=== PATIENT | female | born 1990 | race Two or more races ===

== ENCOUNTER 2022-09-30 16:32 | Inpatient (IN) | payer MEDICAID ==
[~2022-09-30] VITALS: Ht 163 cm; Wt 78.5 kg
[2022-09-30] MEDS ORDERED: MISOPROSTOL 100MCG TABLET VG SCH (18:30)
[2022-09-30] MEDS ORDERED: NALOXONE HCL 0.4 MG/ML 1ML VIAL IM PRN (18:30)
[2022-09-30] MEDS ORDERED: METHYLERGONOVINE MALEATE 0.2 MG/ML IM PRN (18:30)
[2022-09-30] MEDS ORDERED: BUTORPHANOL TARTRATE 2 MG/ML VIAL IV PRN (18:30)
[2022-09-30] MEDS ORDERED: OXYTOCIN 30 UNITS/500ML NS PMX 500 ML IV SCH (18:30)
[2022-09-30] MEDS ORDERED: LIDOCAINE HCL 1% 20ML VIAL (Pyxis) INJ INFIL PRN (18:30)
[2022-09-30] MEDS ORDERED: CARBOPROST TROMETHAMINE 250 MCG/ML AMPUL IM PRN (18:30)
[2022-09-30] MEDS: LACTATED RINGERS 1,000 ML IV SCH ×2 (18:41→20:00)
[2022-09-30] MEDS ORDERED: PENICILLIN G POTASSIUM 5 MMU in DEXT 5% WATER 100 ML IV SCH (19:00)
[2022-09-30 20:33] LABS: CLARITY URINE CLEAR (CLEAR); COLOR URINE YELLOW (YELLOW); KETONES URINE NEGATIVE (NEGATIVE); LEUKOCYTE ESTERASE URINE 3+ (NEGATIVE); NITRITE URINE NEGATIVE (NEGATIVE); OCCULT BLOOD URINE NEGATIVE (NEGATIVE); PH URINE 6.5 (4.5-8.0); PROTEIN URINE NEGATIVE (NEGATIVE); UROBILINOGEN URINE 0.2 E.U./dL (0.2-1.0)
[2022-09-30 20:39] LABS: BASOPHILS % 0.3 % (0.0-2.0); EOSINOPHILS % 2.2 % (0.0-5.0); HEMATOCRIT. 37.9 % (36.0-48.0); HEMOGLOBIN. 12.5 g/dL (12.0-16.0); MEAN CORPUSCULAR HEMOGLOBIN 28.3 pg (28.0-32.0); MEAN CORPUSCULAR VOLUME 85.8 fL (81.0-99.0); MEAN PLATELET VOLUME 10.4 fl (7.4-10.4); MONOCYTES % 6.3 % (2.0-8.0); NEUTROPHILS % 63.2 % (40.0-76.0); PLATELET 230 x1000/uL (130-400); RED BLOOD CELL COUNT 4.42 mill/uL (4.2-5.4); RED CELL DISTRIBUTION WIDTH 16.8 % (11.6-14.6)
[2022-09-30 20:45] LABS: *AMPHETAMINES SCREEN URINE NEGATIVE (NEGATIVE); *BARBITURATES SCREEN URINE NEGATIVE (NEGATIVE); *BENZODIAZEPINES SCREEN URINE NEGATIVE (NEGATIVE); *COCAINE SCREEN URINE NEGATIVE (NEGATIVE); CANNABINOID URINE SCREEN NEGATIVE (NEGATIVE); METHADONE URINE SCREEN NEGATIVE (NEGATIVE); OPIATES URINE SCREEN NEGATIVE (NEGATIVE); PHENCYCLIDINE URINE SCREEN NEGATIVE (NEGATIVE)
[2022-09-30 20:47] LABS: CHLORIDE 107 mEq/L (98-107); INR 0.9; PARTIAL THROMBOPLASTIN TIME 28.2 sec (23.4-31.0); PROTHROMBIN TIME 10.1 sec (9.6-11.0)
[2022-09-30 21:07] LABS: HEPATITIS B SURFACE ANTIGEN NEGATIVE
[2022-09-30] MEDS: MISOPROSTOL 100MCG TABLET VG SCH (22:12)
[2022-10-01] MEDS: MISOPROSTOL 100MCG TABLET VG SCH (00:15)
[2022-10-01] MEDS: PENICILLIN G POTASSIUM 2.5 MMU in DEXTROSE 5% WATER 50 ML IV SCH ×3 (00:16→08:59)
[2022-10-01] MEDS: LACTATED RINGERS 1,000 ML IV SCH ×8 (00:16→10:22)
[2022-10-01] MEDS: DEXT 5%/LACTATED RINGERS 1,000 ML IV SCH ×2 (01:42→02:28)
[2022-10-01] MEDS ORDERED: ROPIVACAINE HCL/PF EPIDURAL 200 ML EPI SCH (07:00)
[2022-10-01] MEDS ORDERED: FENTANYL CITRATE/PF 50MCG/ML 2ML VIAL ONE (11:36)
[2022-10-01] MEDS ORDERED: LIDOCAINE HCL/PF 1% 10 MG/ML 5ML VIAL ONE (11:36)
[2022-10-01] MEDS ORDERED: RHO(D) IMMUNE GLOBULIN 300 MCG/SYR IM PRN (13:45)
[2022-10-01] MEDS ORDERED: LANOLIN OINT 7GM TUBE TOP PRN (13:45)
[2022-10-01] MEDS ORDERED: DIPHENHYDRAMINE 25MG CAPSULE PO PRN (13:45)
[2022-10-01] MEDS ORDERED: OXYTOCIN 30 UNITS/500ML NS PMX 500 ML IV SCH (13:45)
[2022-10-01] MEDS ORDERED: HEMORRHOIDAL SUPP PR PRN (13:45)
[2022-10-01] MEDS ORDERED: GLYCERIN/WITCH HAZEL LEAF MEDICATED PAD TOP PRN (13:45)
[2022-10-01] MEDS ORDERED: IBUPROFEN 400MG TABLET PO PRN (13:45)
[2022-10-01] MEDS: IBUPROFEN 800MG TABLET PO PRN ×2 (15:17→21:38)
[2022-10-01 15:30] VITALS: BP 122/78
[2022-10-01 17:00] VITALS: BP 128/80
[2022-10-01 19:30] VITALS: BP 107/53
[2022-10-01] MEDS ORDERED: DOCUSATE SODIUM 100MG CAPSULE PO SCH (21:00)
[2022-10-01] MEDS ORDERED: INFLUENZA VACCINE 05/PF 0.5 ML SYRINGE IM ONE (21:15)
[2022-10-01] MEDS ORDERED: TETANUS, DIPHTHERIA, PERTUSSIS VAC/PF 0.5ML (>10YR OLD) IM ONE (21:15)
[2022-10-02 04:00] VITALS: BP 95/50
[2022-10-02 07:16] LABS: BASOPHILS % 0.3 % (0.0-2.0); EOSINOPHILS % 1.2 % (0.0-5.0); HEMATOCRIT. 31.9 % (36.0-48.0); HEMOGLOBIN. 10.5 g/dL (12.0-16.0); LYMPHOCYTES % 21.3 % (20.0-50.0); MEAN CORPUSCULAR VOLUME 85.4 fL (81.0-99.0); MEAN PLATELET VOLUME 9.9 fl (7.4-10.4); MONOCYTES % 4.9 % (2.0-8.0); NEUTROPHILS % 72.3 % (40.0-76.0); PLATELET 174 x1000/uL (130-400); RED BLOOD CELL COUNT 3.74 mill/uL (4.2-5.4); RED CELL DISTRIBUTION WIDTH 16.7 % (11.6-14.6)
[2022-10-02 08:00] VITALS: BP 119/82
[2022-10-02] MEDS ORDERED: PRENATAL VIT/FE FUMARATE/FA TABLET PO SCH (09:00)
[2022-10-02] MEDS ORDERED: FERR325T6 MT (09:18)
[2022-10-02] MEDS ORDERED: IBUP-2030 PO (09:18)
[2022-10-02] MEDS ORDERED: MULT-1116 MT (09:18)
[2022-10-02 16:00] VITALS: BP 115/80
[2022-10-02] MEDS: IBUPROFEN 800MG TABLET PO PRN (16:52)
== END 2022-10-02 19:10 | disposition home or self-care (01) | DRG 560 ==
LOC: 8 EST LDRP 16:32 → OBSVTOIN 16:50 → 8 EST A/PP 10-01 15:15
PROVIDERS: ADMIT Obstetrics & Gynecology; ATTEND Obstetrics & Gynecology
PROC: 10E0XZZ Delivery of Products of Conception, External Approach (ICD-10-PCS; principal; 2022-10-01)
PROC: 3E0R3BZ Introduction of Anesthetic Agent into Spinal Canal, Percutaneous Approach (ICD-10-PCS; 2022-10-01)
PROC: 00HU33Z Insertion of Infusion Device into Spinal Canal, Percutaneous Approach (ICD-10-PCS; 2022-10-01)
PROC: 0HQ9XZZ Repair Perineum Skin, External Approach (ICD-10-PCS; 2022-10-01)
PROC: 3E033VJ Introduction of Other Hormone into Peripheral Vein, Percutaneous Approach (ICD-10-PCS; 2022-10-01)
DX: O76 Abnormality in fetal heart rate and rhythm complicating labor and delivery (principal); Z37.0 Single live birth; O41.03X0 Oligohydramnios, third trimester, not applicable or unspecified; O36.8130 Decreased fetal movements, third trimester, not applicable or unspecified; O77.0 Labor and delivery complicated by meconium in amniotic fluid; O99.02 Anemia complicating childbirth; O70.0 First degree perineal laceration during delivery; Z20.822 Contact with and (suspected) exposure to COVID-19; Z3A.39 39 weeks gestation of pregnancy
CPT/HCPCS: 36415; 76805; 76818; 80053; 80305; 81003; 85025; 86592; 86703; 86762; 86850; 86900; 87340; 87426; 90686; 90715; 99281; G0378; J2540; J2795; J3010; J3490; J7060; A4315; J2590

== ENCOUNTER 2023-09-04 00:01 | Emergency (ER) | payer SELFPAY ==
[~2023-09-04] VITALS: Ht 162.6 cm; Wt 75.0 kg
[~2023-09-04 00:01] MED LIST: FERR325T6 MT; IBUP-2030 PO; MULT-1116 MT
[2023-09-04 00:29] VITALS: BP 137/89; TEMP 98.3; O2SAT 100
[2023-09-04 00:52] VITALS: PULSE 81; RESP 20
[2023-09-04 01:19] LABS: BASOPHILS % 0.6 % (0.0-2.0); EOSINOPHILS % 4.1 % (0.0-5.0); HEMATOCRIT. 39.6 % (36.0-48.0); HEMOGLOBIN. 13.1 g/dL (12.0-16.0); LYMPHOCYTES % 39.9 % (20.0-50.0); MEAN CORPUSCULAR HEMOGLOBIN 29.4 pg (28.0-32.0); MEAN CORPUSCULAR HGB CONC 33.2 g/dL (31.0-37.0); MEAN CORPUSCULAR VOLUME 88.6 fL (81.0-99.0); MEAN PLATELET VOLUME 8.7 fl (7.4-10.4); MONOCYTES % 5.7 % (2.0-8.0); NEUTROPHILS % 49.7 % (40.0-76.0); PLATELET 308 x1000/uL (130-400); RED BLOOD CELL COUNT 4.47 mill/uL (4.2-5.4); RED CELL DISTRIBUTION WIDTH 13.5 % (11.6-14.6); WHITE BLOOD COUNT 9.6 x1000/uL (4.5-11.0)
[2023-09-04 01:38] LABS: ALANINE AMINOTRANSFERASE 24 IU/L (10-49); ALBUMIN 4.4 g/dL (3.2-4.8); ASPARTATE AMINOTRANSFERASE 16 IU/L (<34); BILIRUBIN TOTAL 0.4 mg/dL (0.1-1.0); CALCIUM 9.4 mg/dL (8.7-10.4); CARBON DIOXIDE 25 mEq/L (21-32); CHLORIDE 106 mEq/L (98-107); CREATININE 0.7 mg/dL (0.6-1.0); GLUCOSE 107 mg/dL (70-105); POTASSIUM 3.6 mEq/L (3.5-5.1); PROTEIN TOTAL 7.7 g/dL (6.0-8.3); SODIUM 139 mEq/L (136-145); UREA NITROGEN BLOOD 11 mg/dL (9-23)
== END 2023-09-04 08:36 | disposition left against medical advice (07) ==
LOC: ER 00:01
DX: R07.89 Other chest pain (principal); Z53.21 Procedure and treatment not carried out due to patient leaving prior to being seen by health care provider
CPT/HCPCS: 36415; 80053; 85025; 93005; 99281

== ENCOUNTER 2023-09-04 21:34 | Emergency (ER) | payer SELFPAY ==
[~2023-09-04] VITALS: Ht 157.5 cm; Wt 73.3 kg
[2023-09-04 21:46] VITALS: O2SAT 98
[2023-09-04] MEDS ORDERED: KETOROLAC 60MG/2ML VIAL IM STA (21:56)
[2023-09-04 22:42] LABS: BASOPHILS % 0.6 % (0.0-2.0); EOSINOPHILS % 3.6 % (0.0-5.0); LYMPHOCYTES % 37.2 % (20.0-50.0); MEAN CORPUSCULAR HEMOGLOBIN 29.4 pg (28.0-32.0); MEAN CORPUSCULAR HGB CONC 33.3 g/dL (31.0-37.0); MEAN CORPUSCULAR VOLUME 88.4 fL (81.0-99.0); MEAN PLATELET VOLUME 8.7 fl (7.4-10.4); NEUTROPHILS % 52.6 % (40.0-76.0); PLATELET 307 x1000/uL (130-400); RED BLOOD CELL COUNT 4.41 mill/uL (4.2-5.4); RED CELL DISTRIBUTION WIDTH 13.5 % (11.6-14.6)
[2023-09-04 23:06] LABS: ALANINE AMINOTRANSFERASE 26 IU/L (10-49); ALBUMIN 4.4 g/dL (3.2-4.8); ASPARTATE AMINOTRANSFERASE 18 IU/L (<34); BILIRUBIN TOTAL 0.5 mg/dL (0.1-1.0); CALCIUM 9.2 mg/dL (8.7-10.4); CARBON DIOXIDE 23 mEq/L (21-32); CHLORIDE 110 mEq/L (98-107); CREATININE 0.7 mg/dL (0.6-1.0); GLUCOSE 131 mg/dL (70-105); POTASSIUM 3.6 mEq/L (3.5-5.1); PROTEIN TOTAL 7.7 g/dL (6.0-8.3); SODIUM 142 mEq/L (136-145); UREA NITROGEN BLOOD 12 mg/dL (9-23)
[2023-09-04 23:45] LABS: TROPONIN I HIGH SENSITIVITY < 4 ng/L (3.0-34)
[2023-09-05] MEDS ORDERED: KETOROLAC 60MG/2ML VIAL IM NR (00:45)
[2023-09-05 00:46] VITALS: BP 128/83
[2023-09-05 01:32] VITALS: PULSE 99; RESP 18; TEMP 98.4
== END 2023-09-05 01:35 | disposition home or self-care (01) ==
LOC: ER 21:34
DX: K80.20 Calculus of gallbladder without cholecystitis without obstruction (principal); R07.2 Precordial pain; F19.90 Other psychoactive substance use, unspecified, uncomplicated
CPT/HCPCS: 80053; 83690; 85025; 85379; 84484; 36415; 71045; 76705; 93005; 99285; 81025; 96372; J1885; Z7610

== ENCOUNTER 2025-01-15 00:41 | Emergency (ER) | payer MEDICAID ==
[~2025-01-15] VITALS: Ht 160 cm; Wt 77.2 kg
[2025-01-15 00:46] VITALS: BP 138/94; TEMP 36.8; O2SAT 99
[2025-01-15 00:47] VITALS: PULSE 94; RESP 16; O2SAT 100
[2025-01-15 01:20] LABS: EOSINOPHILS % 5.3 % (0.0-5.0); HEMATOCRIT. 43.2 % (36.0-48.0); HEMOGLOBIN. 14.1 g/dL (12.0-16.0); LYMPHOCYTES % 36.6 % (20.0-50.0); MEAN CORPUSCULAR HEMOGLOBIN 28.9 pg (28.0-32.0); MEAN CORPUSCULAR HGB CONC 32.7 g/dL (31.0-37.0); MEAN CORPUSCULAR VOLUME 88.4 fL (81.0-99.0); NEUTROPHILS % 52.1 % (40.0-76.0); PLATELET 314 x1000/uL (130-400); RED BLOOD CELL COUNT 4.89 mill/uL (4.2-5.4); RED CELL DISTRIBUTION WIDTH 13.2 % (11.6-14.6); WHITE BLOOD COUNT 10.4 x1000/uL (4.5-11.0)
[2025-01-15 01:41] LABS: CHLORIDE 106 mEq/L (98-107); POTASSIUM 3.7 mEq/L (3.5-5.1); SODIUM 139 mEq/L (136-145)
[2025-01-15 01:42] LABS: CARBON DIOXIDE 23 mEq/L (21-32)
[2025-01-15 01:47] LABS: CREATININE 0.8 mg/dL (0.6-1.0); GLUCOSE 144 mg/dL (70-105); UREA NITROGEN BLOOD 12 mg/dL (9-23)
[2025-01-15 01:49] LABS: ALANINE AMINOTRANSFERASE 49 IU/L (10-49); ALBUMIN 4.6 g/dL (3.2-4.8); ASPARTATE AMINOTRANSFERASE 23 IU/L (<34); BILIRUBIN DIRECT < 0.1 mg/dL (<=3.0)
[2025-01-15 01:49] LABS: CLARITY URINE CLEAR (CLEAR); COLOR URINE YELLOW (YELLOW); GLUCOSE URINE NEGATIVE (NEGATIVE); KETONES URINE NEGATIVE (NEGATIVE); LEUKOCYTE ESTERASE URINE NEGATIVE (NEGATIVE); NITRITE URINE NEGATIVE (NEGATIVE); OCCULT BLOOD URINE NEGATIVE (NEGATIVE); PH URINE 6.5 (4.5-8.0); PROTEIN URINE NEGATIVE (NEGATIVE); SPECIFIC GRAVITY URINE 1.007 (1.005-1.030); UROBILINOGEN URINE 0.2 E.U./dL (0.2-1.0)
[2025-01-15 01:50] LABS: BILIRUBIN TOTAL 0.4 mg/dL (0.1-1.0); PROTEIN TOTAL 8.4 g/dL (6.0-8.3)
[2025-01-15] MEDS: ACETAMINOPHEN 500MG TABLET PO ONE (02:08)
[2025-01-15] MEDS: ONDANSETRON HCL 4MG TABLET PO ONE (02:08)
[2025-01-15 02:44] LABS: HCG SCREEN NEGATIVE
[2025-01-15] MEDS ORDERED: NAPR-1176 MT (03:04)
== END 2025-01-15 03:17 | disposition home or self-care (01) ==
LOC: ER 00:41
DX: K80.20 Calculus of gallbladder without cholecystitis without obstruction (principal); F19.90 Other psychoactive substance use, unspecified, uncomplicated; Z79.899 Other long term (current) drug therapy
CPT/HCPCS: 99284; 76705; 80076; 80048; 81003; 81025; 84703; 83690; 85025; 36415; Q0162

== ENCOUNTER 2025-09-30 22:06 | Emergency (ER) | payer MEDICAID ==
[~2025-09-30] VITALS: Ht 154.9 cm; Wt 78.3 kg
[~2025-09-30 22:06] MED LIST changes: +NAPR-1176 MT
[2025-09-30 22:21] VITALS: O2SAT 99
[2025-10-01] MEDS ORDERED: NAPR-1176 MT (01:15)
[2025-10-01 01:26] VITALS: BP 138/67; PULSE 84; RESP 16; TEMP 36.7; O2SAT 99
== END 2025-10-01 01:27 | disposition home or self-care (01) ==
LOC: ER 22:06
DX: S00.12XA Contusion of left eyelid and periocular area, initial encounter (principal); H11.32 Conjunctival hemorrhage, left eye; Z79.1 Long term (current) use of non-steroidal anti-inflammatories (NSAID); W01.10XA Fall on same level from slipping, tripping and stumbling with subsequent striking against unspecified object, initial encounter; Y93.01 Activity, walking, marching and hiking; Y92.89 Other specified places as the place of occurrence of the external cause; Y99.8 Other external cause status
CPT/HCPCS: 70486; 99284